=== PATIENT | male | born 1965 | race Caucasian/White ===

== ENCOUNTER 2017-05-15 07:53 | Day surgery (SDC) | payer BC, OTHER ==
[2017-05-13 10:30] VITALS: BMI 22.4
[~2017-05-15 07:53] MED LIST: LACTATED RINGERS 1,000 ML IV SCH
[2017-05-15 10:18] VITALS: RESP 16; TEMP 96.3
[2017-05-15] MEDS ORDERED: PROPOFOL 10 MG/ML 20 ML VIAL IV ONE (11:07)
[2017-05-15] MEDS ORDERED: MIDAZOLAM 2 MG/2 ML VIAL ONE (11:07)
[2017-05-15] MEDS ORDERED: fentaNYL (PF) 50 MCG/ML 2 ML AMP ONE (11:07)
--- NOTE | 2017-05-15 11:27 | P.GSHP ---
History of Present Illness H&P Date: 05/15/17 Chief Complaint: History of colon cancer 's is a 51-year-old male for from Dr. Christine garcia. Patient presents today for colonoscopy. He has a history of colon cancer. Right colectomy. Past Medical History Past Medical History: Cancer, Hyperlipidemia, Hypertension Additional Past Medical History / Comment(s): Colon CA x2. HX RT BBB History of Any Multi-Drug Resistant Organisms: None Reported Past Surgical History: Appendectomy, Bowel Resection, Cholecystectomy, Tonsillectomy Additional Past Surgical History / Comment(s): COLON SX X 5 R/T COLON CANCER. COLONOSCOPY Past Anesthesia/Blood Transfusion Reactions: No Reported Reaction Smoking Status: Current every day smoker - Past Family History Father Family Medical History: Cancer Sister(s) Family Medical History: Cancer Medications and Allergies Home Medications Medication Instructions Recorded Confirmed Type ALPRAZolam [Xanax] 1.5 mg PO DAILY PRN 12/13/15 05/15/17 History Lisinopril 40 mg PO QAM 12/13/15 05/15/17 History Allergies Allergy/AdvReac Type Severity Reaction Status Date / Time bee venom protein (honey bee) Allergy Anaphylaxis Verified 05/15/17 10:12 codeine Allergy Anaphylaxis Verified 05/15/17 10:12 Penicillins Allergy Anaphylaxis Verified 05/15/17 10:12 Surgical - Exam Vital Signs Temp Pulse Resp BP Pulse Ox 96.3 F L 79 16 153/79 98 05/15/17 10:12 05/15/17 10:12 05/15/17 10:12 05/15/17 10:12 05/15/17 10:12 - General well developed, no distress - Eyes PERRL - ENT normal pinna - Neck no masses - Respiratory normal expansion - Abdomen Abdomen: soft, non tender Assessment and Plan Plan: History of colon cancer. We'll perform colonoscopy.
--- NOTE | 2017-05-15 12:02 | P.OP ---
Date of Procedure: 05/15/17 Preoperative Diagnosis: History of colon cancer Postoperative Diagnosis: Polyp at rectum 10 cm Colon polyp at 75 cm Colon polyp at 85 cm Procedure(s) Performed: Colonoscopy Implants: Anesthesia: MAC Surgeon: Chris Castellanos Pathology: other (Colon polyps at 85 5 cm. Rectal polyp at 10 cm) Condition: stable Disposition: PACU Indications for Procedure: Operative Findings: Description of Procedure: Patient's placed on the endoscopy table lateral position. He received IV sedation. Digital rectal exam was performed which revealed no abnormalities. The flexible colonoscope was then placed patient anus passed throughout the entire colon. Patient had a previous right colectomy. In the proximal transverse colon at the 85 cm curry there was a suspicious polyp. This was biopsied with the snare and forcep. The polyp was quite large and was impossible to remove. The scope was then brought back and there were diverticular changes seen. There was also another polyp seen at the 75-70 curry. This was also biopsied. It had a large base was impossible to remove. The scope was brought back and the remainder the descending colon and sigmoid colon there were diverticular changes. The rectum at the 10 cm curyr there was another suspicious polyp this is removed with the snare. The previous biopsy duval at the 85 and 75 cm curry had been tattooed with the ink spot. The scope was then withdrawn.
[2017-05-15 12:23] VITALS: BP 122/73; PULSE 94
== END 2017-05-15 12:49 | disposition home or self-care (01) ==
LOC: ORWHC2ENDO 07:53
PROVIDERS: ATTEND Surgery
DX: Z12.11 Encounter for screening for malignant neoplasm of colon (principal); C18.4 Malignant neoplasm of transverse colon; K57.30 Diverticulosis of large intestine without perforation or abscess without bleeding; Z85.038 Personal history of other malignant neoplasm of large intestine; Z90.49 Acquired absence of other specified parts of digestive tract; I10 Essential (primary) hypertension; E78.5 Hyperlipidemia, unspecified; I45.10 Unspecified right bundle-branch block; F17.200 Nicotine dependence, unspecified, uncomplicated; Z79.899 Other long term (current) drug therapy; Z88.5 Allergy status to narcotic agent; Z88.0 Allergy status to penicillin
CPT/HCPCS: 88305; 45380; 45385; 44404; J2250; J3010; J2704

== ENCOUNTER → 2017-06-03 | Outpatient (CLI) | payer OTHER ==
--- NOTE | 2017-06-03 16:06 | CT ---
EXAMINATION TYPE: CT ChestAbdPelvis w con DATE OF EXAM: 06/03/2017 COMPARISON: 02/27/2016 HISTORY: Rectal and Colon cancer. Observation for mets CT DLP: 1765 mGycm CONTRAST: CT scan of the chest, abdomen and pelvis is performed with Oral Contrast and with IV Contrast, patien t injected with 100 ml mL of Omnipaque 300. CT Chest: LUNGS: The lungs are clear and free of infiltrate or atelectasis. No pulmonary nodule or mass is det ected. No pleural effusion or CT evidence of interstitial lung disease. MEDIASTINUM: Thoracic aorta is of normal caliber. The heart is not enlarged. No evidence for media stinal mass or adenopathy. HILAR STRUCTURES: No evidence for mass. No hilar adenopathy is appreciated. OTHER: No significant abnormality. CONTRAST CT ABDOMEN AND PELVIS FINDINGS: LIVER/GB: Mild hepatic steatosis. Cholecystectomy changes noted. No space occupying hepatic lesio n. Biliary tree is of normal caliber. PANCREAS: No inflammation. No distinct mass. SPLEEN: No splenic enlargement. No lesion seen. ADRENALS: No nodule. No thickening. KIDNEYS/BLADDER: No hydronephrosis. No nephrolithiasis. No disctinct renal mass. BOWEL: Right hemicolectomy changes noted. Normal bowel caliber. No inflammation. GENITAL ORGANS: No gross abnormality. LYMPH NODES: No greater than 1cm abdominal or pelvic lymph nodes are appreciated. AORTA: No significant abnormality. OSSEOUS STRUCTURES: No significant abnormality is seen. OTHER: Supraumbilical ventral fat-containing hernia. IMPRESSION: 1. No evidence for metastatic disease or recurrent disease at this time.
== END | disposition home or self-care (01) ==
LOC: RADCTMAIN 12:39
PROVIDERS: ATTEND Internal Medicine Hematology & Oncology
DX: C20 Malignant neoplasm of rectum (principal); C18.6 Malignant neoplasm of descending colon
CPT/HCPCS: 71260; 74177; Q9967

== ENCOUNTER 2018-02-24 22:15 | Emergency (ER) | payer OTHER ==
[2018-02-24] MEDS ORDERED: NOREPINEPHRIN 4 MG-0.9% NS PMX 4 MG/250 ML ML IV SCH (22:45)
[2018-02-24 22:59] LABS: HCT 30.5 % (39.0-53.0); HGB 9.3 gm/dL (13.0-17.5); Hypochromasia Marked; MCH 32.3 pg (25.0-35.0); MCHC 30.6 g/dL (31.0-37.0); MCV 105.4 fL (80.0-100.0); Macrocytosis Slight; Mean Platelet Volume 7.4; Platelet Count 109 k/uL (150-450); RBC 2.89 m/uL (4.30-5.90); RDW 12.7 % (11.5-15.5); WBC 5.8 k/uL (3.8-10.6)
[2018-02-24] MEDS ORDERED: EPINEPHrine 10 ML SYRINGE (0.1 MG/ML) ONE (23:00)
[2018-02-24 23:03] LABS: INR 1.4 (<1.2); Partial Thromboplastin Time 57.4 sec (22.0-30.0); Prothrombin Time 13.4 sec (9.0-12.0)
[2018-02-24 23:05] LABS: ALT 36 U/L (21-72); AST 17 U/L (17-59); Albumin 1.2 g/dL (3.5-5.0); Alkaline Phosphatase 34 U/L (38-126); Anion Gap 14 mmol/L; Blood Urea Nitrogen 5 mg/dL (9-20); Glucose 186 mg/dL (74-99); Sodium 147 mmol/L (137-145); Total Bilirubin <0.1 mg/dL (0.2-1.3); Total Protein 2.4 g/dL (6.3-8.2)
[2018-02-24 23:09] LABS: Calcium 4.2 mg/dL (8.4-10.2); Carbon Dioxide 7 mmol/L (22-30); Chloride 126 mmol/L (98-107); Potassium 2.2 mmol/L (3.5-5.1)
[2018-02-24 23:10] LABS: Alcohol 93 mg/dL
--- NOTE | 2018-02-24 23:16 | XR ---
EXAMINATION TYPE: XR cervical spine 1V DATE OF EXAM: 02/24/2018 COMPARISON: NONE HISTORY: Cardiac arrest TECHNIQUE: Single view FINDINGS: Cervical vertebra have normal alignment. Detail is limited by the shoulders. Posterior conf[place] g[place] ents appear intact. Tracheostomy tube is noted. There is intact skull base. IMPRESSION: Negative limited cervical spine exam.
[2018-02-24 23:20] LABS: Creatine Kinase MB <0.2 ng/mL (0.0-2.4); Troponin I <0.012 ng/mL (0.000-0.034)
[2018-02-24 23:21] LABS: Band Neutrophils % 2 %; Eosinophils # (M) 0.17 k/uL (0-0.7); Lymphocytes # (M) 3.13 k/uL (1.0-4.8); Monocytes # (M) 0.12 k/uL (0-1.0); Neutrophils % (M) 39 %; Nucleated Red Blood Cells 0 /100 WBC (0-0); Total Cells Counted 100
[2018-02-24 23:22] LABS: Reactive Lymphocytes Present
--- NOTE | 2018-02-24 23:22 | XR ---
EXAMINATION TYPE: XR chest 1V portable DATE OF EXAM: 02/24/2018 COMPARISON: 06/25/2010 HISTORY: Cardiac arrest TECHNIQUE: Single frontal view of the chest is obtained. FINDINGS: Heart and mediastinum are normal. Lungs are clear of consolidation. There are chest leads. Old right-sided healed rib fracture. Endotracheal tube is low and less than 1 cm from the melva. Na sogastric tube is looped in the stomach. IMPRESSION: Endotracheal tube should be pulled back 3 cm. No cardiopulmonary disease.
[2018-02-24 23:23] LABS: Creatine Kinase 46 U/L (55-170)
--- NOTE | 2018-02-24 23:23 | XR ---
EXAMINATION TYPE: XR pelvis AP view DATE OF EXAM: 02/24/2018 COMPARISON: NONE HISTORY: Cardiac arrest. Pain TECHNIQUE: Single view FINDINGS: Pelvic ring is intact. Proximal femurs and hip joints are intact. Sacroiliac joints appear normal. IMPRESSION: Normal pelvis
[2018-02-24] MEDS ORDERED: SODIUM CHLORIDE 0.9% 1,000 ML IV STA (23:37)
[2018-02-24] MEDS ORDERED: SODIUM CHLORIDE 0.9% 2,000 ML IV STA (23:37)
--- NOTE | 2018-02-24 23:51 | CT ---
EXAMINATION TYPE: CT brain liban wo con DATE OF EXAM: 02/24/2018 COMPARISON: CT brain 08/11/2011 HISTORY: No prior, attempted suicide by hanging, cardiac arrest, evaluate for trauma CT DLP: head-1064.30 body-452.70 mGycm Automated exposure control for dose reduction was used. TECHNIQUE: CT scan of the head and cervical spine are performed without contrast. FINDINGS: There is some loss of the black-white matter differentiation in the brain. This is consist ent with some degree of cerebral edema. There is no midline shift. There is no sign of intracranial h emorrhage. There is mucosal thickening in the ethmoid and maxillary sinuses. There is soft tissue air bubble anterior to the right maxilla. There is air-fluid level in the sphenoid and frontal sinuses. The calvarium is intact. The cervical vertebra have normal alignment. There is mild spondylosis at C6-7. Posterior elements ar e intact. Skull base is intact. I see no cervical spine fracture. There is nasogastric tube and endot lyn tube. IMPRESSION: There is evidence of cerebral edema that is new compared to old exam. This could be an anoxic encepha lopathy. Negative CT scan of the cervical spine.
[2018-02-24 23:53] LABS: Glucose,Whole Blood 313 mg/dL (75-99)
[2018-02-24 23:53] LABS: Appearance,Urine Clear (Clear); Bilirubin,Urine Negative (Negative); Blood,Urine Negative (Negative); Color,Urine Light Yellow; Glucose,Urine (UA) Negative (Negative); Ketones,Urine Negative (Negative); Leukocyte Esterase,Urine Negative (Negative); Nitrite,Urine Negative (Negative); PH, Urine 5.5 (5.0-8.0); Protein,Urine Negative (Negative); Specific Gravity,Urine 1.008 (1.001-1.035); Urobilinogen,Urine <2.0 mg/dL (<2.0)
[2018-02-24 23:58] LABS: ABG Base Excess -20.6 mmol/L; ABG HCO3 14 mmol/L (21-25); ABG Oxygen Saturation 97.9 % (94-97); ABG PO2 198 mmHg (83-108); ABG TCO2 16 mmol/L (19-24)
[2018-02-25] MEDS ORDERED: POTASSIUM CHLORIDE 20 MEQ in WATER FOR INJECTION 1 100ML.BAG IVPB SCH
[2018-02-25 00:05] LABS: Amphetamine Screen,Urine Not Detected (NotDetected); Barbiturate Screen,Urine Not Detected (NotDetected); Benzodiazepines Screen,Urine Not Detected (NotDetected); Cocaine Screen,Urine Not Detected (NotDetected); Methadone Screen, Urine Not Detected (NotDetected); Opiate Screen,Urine Not Detected (NotDetected); Oxycodone Screen, Urine Not Detected (NotDetected); Phencyclidine Screen,Urine Not Detected (NotDetected); Tricyclic Antidepressant,Urine Not Detected (NotDetected); Urn Cannabinoid Scrn Not Detected (NotDetected)
[2018-02-25 00:10] LABS: ABG PCO2 83 mmHg (35-45); ABG PH <7.00 (7.35-7.45)
--- NOTE | 2018-02-25 00:53 | ED ---
Trauma HPI - General Chief Complaint: Trauma Stated Complaint: Cardiac Arrest Time Seen by Provider: 02/24/18 23:16 Source: EMS Mode of arrival: EMS - History of Present Illness Initial Comments: This 52-year-old white male presents via EMS as a priority 1 hanging. History is obtained per the [place] police. Somebody apparently saw him post on Facebook that he was going to kill himself. The person apparently called the superintendent police who showed up to his house and found him hanging from his doorway. The exact amount of time that he was hanging is undetermined. It is estimated to be about 5 minutes. The patient was initially pulseless. He apparently did eventually obtain pulses. EMS but then they lost pulses. They were unable to intubate the patient. He is pulseless on arrival. CPR is in progress. The patient is unable to give any history himself. His friends and brother later do present in do relate that he has a history of colon cancer for which she did not want surgery. He apparently has had 5 different types of cancer primarily into his colon. They relate that he drinks alcohol daily and utilizes medical marijuana. Once again history is limited due to patient's condition and inability to communicate. - Related Data Allergies Allergy/AdvReac Type Severity Reaction Status Date / Time Unable to Assess Allergy Verified 02/24/18 23:05 Review of Systems ROS Statement: Those systems with pertinent positive or pertinent negative responses have been documented in the HPI. ROS Other: All systems not noted in ROS Statement are negative. Past Medical History Past Medical History: Unable to Obtain, Cancer History of Any Multi-Drug Resistant Organisms: Unobtainable Past Surgical History: Unable to Obtain Past Psychological History: Unable to Obtain Smoking Status: Unknown if ever smoked Past Alcohol Use History: Unable to Obtain Past Drug Use History: Unable to Obtain General Exam - General Exam Comments Initial Comments: GENERAL: The patient is cyanotic initially with a [place] Coma Scale of 3. VITAL SIGNS: Heart rate, blood pressure, respiratory rate reviewed as recorded in nurse's notes. EYES: Pupils are fixed and dilated. ENT: There is a rope hanging curry noted at the base of the neck. Vomitus is noted in the throat. Airway is not patent. NECK: Nontender. No swelling or evidence of injury. No subcutaneous emphysema. Trachea is midline. No thyroid mass. HEART: Regular rate and rhythm. Good peripheral pulses. LUNGS/CHEST: No spontaneous respirations are noted initially. After artificial airway gained there is bilateral rhonchi. ABDOMEN: Abdomen is distended. EXTREMITIES: No extremity swelling. No thoracic or lumbar trauma noted. NEUROLOGIC: The patient has a [place] Coma Scale of 3. SKIN: A significant ropelike hanging abrasion is noted to the neck. Cyanosis is noted to the face which later does resolve. PSYCHIATRIC: Patient is not communicative. Medical Decision Making - Medical Decision Making The patient was seen immediately upon arrival. CPR is in progress. He does have a c-collar present. Multiple doses of epinephrine were given prior to arrival. They apparently did have pulses at one time and route. CPR/ACLS/ATLS was continued. The patient received multiple doses of epinephrine in the ER as well. Attempt was made to intubate the patient manually with a Mac blade. Unfortunately, a significant amount of food is present in the posterior oropharynx and into the airway. Suctioning was completed. There is significant edema noted and the cords were not visualized. The patient also had attempt at intubation utilizing the kaleidoscope however due to the amount of vomitus, fluid, and food particles there was further obstructed. Attempts were made to identify the airway with a bougie however there is severe edema noted and is difficult to visualize. Attempt was made to pass an endotracheal tube however this ended up in the stomach. The decision was made to perform a cricothyroidotomy. The patient had this done emergently by myself. A vertical incision was made directly over the area where the cricoid cartilage should be present. There, unfortunately, is a significant amount of edema in the neck region. The patient did have a dissection down into the cricothyroid membrane region. Utilizing a small scalpel and a standard cricothyrotomy tray, the cricothyroid membrane is punctured and expanded. A standard cricothyrotomy tube is initially placed however aeration was not able to be performed. It is suspected that there may be food chunks obstructing. This was replaced and I am able to aerate at that time. This was replaced over a bougie with a 6.0 endotracheal tube and even better aeration is obtained. Pulses were obtained periodically throughout the code. After the airway is secured the patient does have regular pulses. He had a decent blood pressure but eventually became hypotensive and does require norepinephrine vasopressor support. He receives significant amount of fluid hydration as well. Strict cervical spine precautions were maintained. A portable chest x-ray was done which does show the endotracheal tube somewhat low at the melva and it was removed 1.5 cm. The patient also had an AP pelvis which was negative and a cervical spine x-ray which did not show any acute processes but is somewhat limited. The also had multiple lab abnormalities to include anemia with hemoglobin of 9.3, potassium low at 2.2, chloride elevated at 126, CO2 low at 7, lactic acidosis at 8.1, and elevated alcohol level of 93. Please see labs for further details. The patient 's arterial blood gases came back markedly abnormal with a pH of 6.8, pCO2 of 82.9, pO2 of 198, and a bicarb of 13.6. The vent settings were adjusted. The patient did require pressors and therefore a central line was placed. A right subclavian was done in the usual standard fashion without any complications on first attempt. This was done under strict sterile technique as well. X-ray after central line placement does show good placement and no evidence of pneumothorax. The case was discussed with Dr. Julio and he does request of the patient is transferred to a larger facility with neurosurgery coverage. The family and friends are updated on multiple occasions. The next of kin is his daughter whose name is Stacie Gu with the telephone number of [phone]. She does agree to transfer to [facility] but does state that the other family members and/or friends are able to make decisions on her behalf. She has not talked to her father quite some time. The case is discussed with Dr. Veloz from [facility] and he accepts the transfer. Appropriate transfer paperwork is completed. Is felt as though the patient is critically ill. It is felt that he has a very poor prognosis and likely very severe anoxic encephalopathy. The family is updated to this extent. 60 minutes of critical care time is utilized and treatment of the patient and this does not include time necessary to complete the procedures. - Lab Data Result diagrams: 02/24/18 22:45 02/24/18 22:45 Lab Results 02/24/18 02/24/18 02/24/18 Range/Units 22:45 22:45 22:45 WBC 5.8 (3.8-10.6) k/uL RBC 2.89 L (4.30-5.90) m/uL Hgb 9.3 L (13.0-17.5) gm/dL Hct 30.5 L (39.0-53.0) % MCV 105.4 H (80.0-100.0) fL MCH 32.3 (25.0-35.0) pg MCHC 30.6 L (31.0-37.0) g/dL RDW 12.7 (11.5-15.5) % Plt Count 109 L (150-450) k/uL Neutrophils % (Manual) 39 % Band Neutrophils % 2 % Lymphocytes % (Manual) 54 % Monocytes % (Manual) 2 % Eosinophils % (Manual) 3 % Neutrophils # (Manual) 2.30 (1.3-7.7) k/uL Lymphocytes # (Manual) 3.13 (1.0-4.8) k/uL Monocytes # (Manual) 0.12 (0-1.0) k/uL Eosinophils # (Manual) 0.17 (0-0.7) k/uL Nucleated RBCs 0 (0-0) /100 WBC Manual Slide Review Performed Reactive Lymphocytes Present Hypochromasia Marked Macrocytosis Slight PT (9.0-12.0) sec INR (<1.2) APTT (22.0-30.0) sec Sample Site ABG pH (7.35-7.45) ABG pCO2 (35-45) mmHg ABG pO2 (83-108) mmHg ABG HCO3 (21-25) mmol/L ABG Total CO2 (19-24) mmol/L ABG O2 Saturation (94-97) % ABG Base Excess mmol/L Felipe Test FiO2 % Sodium 147 H (137-145) mmol/L Potassium 2.2 L* (3.5-5.1) mmol/L Chloride 126 H* (98-107) mmol/L Carbon Dioxide 7 L* (22-30) mmol/L Anion Gap 14 mmol/L BUN 5 L (9-20) mg/dL Creatinine 0.50 L (0.66-1.25) mg/dL Est GFR (CKD-EPI)AfAm >90 (>60 ml/min/1.73 sqM) Est GFR (CKD-EPI)NonAf >90 (>60 ml/min/1.73 sqM) Glucose 186 H (74-99) mg/dL POC Glucose (mg/dL) (75-99) mg/dL POC Glu Counter Attendant ID Plasma Lactic Acid Bry (0.7-2.0) mmol/L Calcium 4.2 L* (8.4-10.2) mg/dL Total Bilirubin <0.1 L (0.2-1.3) mg/dL AST 17 (17-59) U/L ALT 36 (21-72) U/L Alkaline Phosphatase 34 L (38-126) U/L Total Creatine Kinase 46 L (55-170) U/L CK-MB (CK-2) <0.2 (0.0-2.4) ng/mL CK-MB (CK-2) Rel Index Troponin I <0.012 (0.000-0.034) ng/mL Total Protein 2.4 L (6.3-8.2) g/dL Albumin 1.2 L (3.5-5.0) g/dL Urine Color Urine Appearance (Clear) Urine pH (5.0-8.0) Ur Specific [place] (1.001-1.035) Urine Protein (Negative) Urine Glucose (UA) (Negative) Urine Ketones (Negative) Urine Blood (Negative) Urine Nitrite (Negative) Urine Bilirubin (Negative) Urine Urobilinogen (<2.0) mg/dL Ur Leukocyte Esterase (Negative) Urine Opiates Screen (NotDetected) Ur Oxycodone Screen (NotDetected) Urine Methadone Screen (NotDetected) Ur Propoxyphene Screen (NotDetected) Ur Barbiturates Screen (NotDetected) U Tricyclic Antidepress (NotDetected) Ur Phencyclidine Scrn (NotDetected) Ur Amphetamines Screen (NotDetected) U Methamphetamines Scrn (NotDetected) U Benzodiazepines Scrn (NotDetected) Urine Cocaine Screen (NotDetected) U Marijuana (THC) Screen (NotDetected) Serum Alcohol 93 mg/dL Blood Type Blood Type Recheck Antibody Screen Spec Expiration Date 02/24/18 02/24/18 02/24/18 Range/Units 22:45 22:45 22:45 WBC (3.8-10.6) k/uL RBC (4.30-5.90) m/uL Hgb (13.0-17.5) gm/dL Hct (39.0-53.0) % MCV (80.0-100.0) fL MCH (25.0-35.0) pg MCHC (31.0-37.0) g/dL RDW (11.5-15.5) % Plt Count (150-450) k/uL Neutrophils % (Manual) % Band Neutrophils % % Lymphocytes % (Manual) % Monocytes % (Manual) % Eosinophils % (Manual) % Neutrophils # (Manual) (1.3-7.7) k/uL Lymphocytes # (Manual) (1.0-4.8) k/uL Monocytes # (Manual) (0-1.0) k/uL Eosinophils # (Manual) (0-0.7) k/uL Nucleated RBCs (0-0) /100 WBC Manual Slide Review Reactive Lymphocytes Hypochromasia Macrocytosis PT 13.4 H (9.0-12.0) sec INR 1.4 H (<1.2) APTT 57.4 H (22.0-30.0) sec Sample Site ABG pH (7.35-7.45) ABG pCO2 (35-45) mmHg ABG pO2 (83-108) mmHg ABG HCO3 (21-25) mmol/L ABG Total CO2 (19-24) mmol/L ABG O2 Saturation (94-97) % ABG Base Excess mmol/L Felipe Test FiO2 % Sodium (137-145) mmol/L Potassium (3.5-5.1) mmol/L Chloride (98-107) mmol/L Carbon Dioxide (22-30) mmol/L Anion Gap mmol/L BUN (9-20) mg/dL Creatinine (0.66-1.25) mg/dL Est GFR (CKD-EPI)AfAm (>60 ml/min/1.73 sqM) Est GFR (CKD-EPI)NonAf (>60 ml/min/1.73 sqM) Glucose (74-99) mg/dL POC Glucose (mg/dL) (75-99) mg/dL POC Glu Counter Attendant ID Plasma Lactic Acid Bry 8.1 H* (0.7-2.0) mmol/L Calcium (8.4-10.2) mg/dL Total Bilirubin (0.2-1.3) mg/dL AST (17-59) U/L ALT (21-72) U/L Alkaline Phosphatase (38-126) U/L Total Creatine Kinase (55-170) U/L CK-MB (CK-2) (0.0-2.4) ng/mL CK-MB (CK-2) Rel Index Troponin I (0.000-0.034) ng/mL Total Protein (6.3-8.2) g/dL Albumin (3.5-5.0) g/dL Urine Color Urine Appearance (Clear) Urine pH (5.0-8.0) Ur Specific [place] (1.001-1.035) Urine Protein (Negative) Urine Glucose (UA) (Negative) Urine Ketones (Negative) Urine Blood (Negative) Urine Nitrite (Negative) Urine Bilirubin (Negative) Urine Urobilinogen (<2.0) mg/dL Ur Leukocyte Esterase (Negative) Urine Opiates Screen (NotDetected) Ur Oxycodone Screen (NotDetected) Urine Methadone Screen (NotDetected) Ur Propoxyphene Screen (NotDetected) Ur Barbiturates Screen (NotDetected) U Tricyclic Antidepress (NotDetected) Ur Phencyclidine Scrn (NotDetected) Ur Amphetamines Screen (NotDetected) U Methamphetamines Scrn (NotDetected) U Benzodiazepines Scrn (NotDetected) Urine Cocaine Screen (NotDetected) U Marijuana (THC) Screen (NotDetected) Serum Alcohol mg/dL Blood Type O Negative Blood Type Recheck No Antibody Screen NEGATIVE Spec Expiration Date 02/27/2018234402/24/18 02/24/18 02/24/18 Range/Units 23:00 23:52 23:55 WBC (3.8-10.6) k/uL RBC (4.30-5.90) m/uL Hgb (13.0-17.5) gm/dL Hct (39.0-53.0) % MCV (80.0-100.0) fL MCH (25.0-35.0) pg MCHC (31.0-37.0) g/dL RDW (11.5-15.5) % Plt Count (150-450) k/uL Neutrophils % (Manual) % Band Neutrophils % % Lymphocytes % (Manual) % Monocytes % (Manual) % Eosinophils % (Manual) % Neutrophils # (Manual) (1.3-7.7) k/uL Lymphocytes # (Manual) (1.0-4.8) k/uL Monocytes # (Manual) (0-1.0) k/uL Eosinophils # (Manual) (0-0.7) k/uL Nucleated RBCs (0-0) /100 WBC Manual Slide Review Reactive Lymphocytes Hypochromasia Macrocytosis PT (9.0-12.0) sec INR (<1.2) APTT (22.0-30.0) sec Sample Site rbrac ABG pH <7.00 L* (7.35-7.45) ABG pCO2 83 H* (35-45) mmHg ABG pO2 198 H (83-108) mmHg ABG HCO3 14 L (21-25) mmol/L ABG Total CO2 16 L (19-24) mmol/L ABG O2 Saturation 97.9 H (94-97) % ABG Base Excess -20.6 mmol/L Felipe Test Yes FiO2 100 % Sodium (137-145) mmol/L Potassium (3.5-5.1) mmol/L Chloride (98-107) mmol/L Carbon Dioxide (22-30) mmol/L Anion Gap mmol/L BUN (9-20) mg/dL Creatinine (0.66-1.25) mg/dL Est GFR (CKD-EPI)AfAm (>60 ml/min/1.73 sqM) Est GFR (CKD-EPI)NonAf (>60 ml/min/1.73 sqM) Glucose (74-99) mg/dL POC Glucose (mg/dL) 313 H (75-99) mg/dL POC Glu Counter Attendant ID Mackenzie Davey Plasma Lactic Acid Bry (0.7-2.0) mmol/L Calcium (8.4-10.2) mg/dL Total Bilirubin (0.2-1.3) mg/dL AST (17-59) U/L ALT (21-72) U/L Alkaline Phosphatase (38-126) U/L Total Creatine Kinase (55-170) U/L CK-MB (CK-2) (0.0-2.4) ng/mL CK-MB (CK-2) Rel Index Troponin I (0.000-0.034) ng/mL Total Protein (6.3-8.2) g/dL Albumin (3.5-5.0) g/dL Urine Color Light Yellow Urine Appearance Clear (Clear) Urine pH 5.5 (5.0-8.0) Ur Specific [place] 1.008 (1.001-1.035) Urine Protein Negative (Negative) Urine Glucose (UA) Negative (Negative) Urine Ketones Negative (Negative) Urine Blood Negative (Negative) Urine Nitrite Negative (Negative) Urine Bilirubin Negative (Negative) Urine Urobilinogen <2.0 (<2.0) mg/dL Ur Leukocyte Esterase Negative (Negative) Urine Opiates Screen Not Detected (NotDetected) Ur Oxycodone Screen Not Detected (NotDetected) Urine Methadone Screen Not Detected (NotDetected) Ur Propoxyphene Screen Not Detected (NotDetected) Ur Barbiturates Screen Not Detected (NotDetected) U Tricyclic Antidepress Not Detected (NotDetected) Ur Phencyclidine Scrn Not Detected (NotDetected) Ur Amphetamines Screen Not Detected (NotDetected) U Methamphetamines Scrn Not Detected (NotDetected) U Benzodiazepines Scrn Not Detected (NotDetected) Urine Cocaine Screen Not Detected (NotDetected) U Marijuana (THC) Screen Not Detected (NotDetected) Serum Alcohol mg/dL Blood Type Blood Type Recheck Antibody Screen Spec Expiration Date Disposition Clinical Impression: Suicide attempt, Hanging, Acute respiratory failure, Alcohol intoxication, Hypokalemia, Lactic acidosis, Anoxic encephalopathy, Hyperchloremia, Anemia Disposition: OTHER INSTITUTION NOT DEFINED Condition: Critical Is patient prescribed a controlled substance at d/c from ED?: No Referrals: None,Stated [Primary Care Provider] - 1-2 days Time of Disposition: 00:54 - Out of Hospital Transfer - Req. Specs Out of Hospital Transfer - Requested Specifics: Other Emergency Center ([facility])
--- NOTE | 2018-02-25 00:57 | XR ---
EXAMINATION TYPE: XR chest 1V portable DATE OF EXAM: 02/25/2018 COMPARISON: 02/24/2018 HISTORY: Central line placement TECHNIQUE: Single frontal view of the chest is obtained. FINDINGS: Heart and mediastinum are normal. There is right sided central venous catheter with tip ov er the top of the right atrium. There is no pneumothorax. There is coarsening of interstitial marking s. Endotracheal tube is proximally 2 cm from the melva. There is nasogastric tube in good position. IMPRESSION: Central venous catheter appears in good position.
== END 2018-02-25 01:15 | disposition other institution (70) ==
LOC: EDBD → EC 22:15 → MERGE 22:15 → EC 02-25 01:15
DX: T71.162A Asphyxiation due to hanging, intentional self-harm, initial encounter (principal); J96.00 Acute respiratory failure, unspecified whether with hypoxia or hypercapnia; E87.8 Other disorders of electrolyte and fluid balance, not elsewhere classified; E87.2 Acidosis; E87.6 Hypokalemia; G93.1 Anoxic brain damage, not elsewhere classified; F10.120 Alcohol abuse with intoxication, uncomplicated; D64.9 Anemia, unspecified; S10.91XA Abrasion of unspecified part of neck, initial encounter; R40.2432 Glasgow coma scale score 3-8, at arrival to emergency department; Z85.038 Personal history of other malignant neoplasm of large intestine; Y92.009 Unspecified place in unspecified non-institutional (private) residence as the place of occurrence of the external cause
CPT/HCPCS: 36415; 36600; 94002; 93005; 86900; 86901; 80053; 82550; 82553; 82805; 83605; 84484; 85025; 85610; 85730; 86850; 81003; 80306; 80320; 72020; 72170; 71045 ×2; 72125; 70450; 99291; 36556; 31500; 92950; 96361; 96365; C1769; J3480; J0171